=== PATIENT | male | born 1965 | race Caucasian/White ===

== ENCOUNTER 2017-01-14 17:22 | Observation (INO) | payer BC ==
[~2017-01-14] VITALS: Ht 185.4 cm; Wt 87.5 kg
[2017-01-14] MEDS ORDERED: BUPR150T5 PO (17:32)
[2017-01-14] MEDS ORDERED: OMEP40CA2 PO (17:32)
[2017-01-14] MEDS ORDERED: PANTOPRAZOLE 40MG INJ (PROTONIX) (C9113) IV ONE (18:30)
[2017-01-14 18:40] LABS: BASO % 0.2 % (0.0-1.0); EOS # 0.1 K/mm3 (0.0-0.50); EOS % 1.1 % (0.0-3.0); LARGE UNSTAINED CELL # 0.2 K/mm3 (0.0-0.4); LARGE UNSTAINED CELL % 1.5 % (0.0-4.0); LYMPH % 18.5 % (24.0-44.0); MEAN CORPUSCULAR HEMOGLOBIN 34.3 pg (27.0-33.0); MEAN CORPUSCULAR HGB CONC 35.2 g/dl (32.0-36.5); MEAN CORPUSCULAR VOLUME 97.4 fl (80.0-96.0); MONO # 0.5 K/mm3 (0.0-0.8); MONO % 4.8 % (0.0-5.0); NEUTROPHILS # 7.9 K/mm3 (1.8-7.7); NEUTROPHILS % 73.9 % (36.0-66.0); PLATELET COUNT, AUTOMATED 193 k/mm3 (150-450); RED CELL DISTRIBUTION WIDTH 11.4 % (11.5-14.5); WHITE BLOOD COUNT 10.7 K/mm3 (4.0-10.0)
[2017-01-14 18:44] LABS: ALBUMIN 3.9 GM/DL (3.2-5.2); ALBUMIN/GLOBULIN RATIO 1.39 (1.00-1.93); ALKALINE PHOSPHATASE 103 U/L (45-117); ALT/SGPT 35 U/L (12-78); ANION GAP 11 MEQ/L (8-16); AST/SGOT 16 U/L (15-37); BILIRUBIN,DIRECT 0.2 MG/DL (0.0-0.2); BILIRUBIN,TOTAL 0.7 MG/DL (0.2-1.0); BLOOD UREA NITROGEN 12 MG/DL (7-18); CALCIUM LEVEL 8.9 MG/DL (8.5-10.1); CARBON DIOXIDE LEVEL 25 MEQ/L (21-32); CHLORIDE LEVEL 103 MEQ/L (98-107); CREATININE FOR GFR 0.78 MG/DL (0.70-1.30); GLOMERULAR FILTRATION RATE > 60.0 (>60); GLUCOSE, FASTING 99 MG/DL (70-105); POTASSIUM SERUM 3.5 MEQ/L (3.5-5.1); SODIUM LEVEL 139 MEQ/L (136-145); TOTAL PROTEIN 6.7 GM/DL (6.4-8.2)
--- NOTE | 2017-01-14 19:03 | REP ---
REASON: Epigastric pain. COMPARISON: None. FINDINGS: Supine and upright views of the abdomen show the intestinal gas pattern to be nonspecific. Gas and stool is seen throughout the colon within the rectosigmoid region. The organ silhouettes insofar as delineated appear unremarkable. No abdominal calcific densities are seen within the abdomen or pelvis. The accompanying single frontal view of the chest shows no free subdiaphragmatic air, cardiomegaly, infiltrates or effusions. Surgical clips are seen in the right upper quadrant from previous cholecystectomy. IMPRESSION: Nonspecific intestinal gas pattern. Signed by Jamie Ordaz DO 01/14/2017 07:13 P
[2017-01-14] MEDS ORDERED: GI COCKTAIL 50ML BTL(HYOSCYAMINE/MAALOX/LIDOCAINE VISCOUS)(1:3:1) PO ONE (19:15)
[2017-01-14] MEDS ORDERED: ONDANSETRON 4MG/2ML VIAL (J2405) IV ONE ×2 (20:30→22:15)
[2017-01-14] MEDS ORDERED: ISOVUE-370 76% 100ML VIAL (Q9967) As Ordered ONE (20:56)
--- NOTE | 2017-01-14 21:39 | ECGEPIP ---
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
--- NOTE | 2017-01-14 21:40 | ECGEPIP ---
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
--- NOTE | 2017-01-14 22:10 | REPUSA ---
CLINICAL HISTORY: Pancreatitis. TECHNIQUE: CT abdomen and pelvis following administration of IV contrast. Total DLP 572.1 mGy*cm COMPARISON: No pertinent prior studies are available at this time. CT ABDOMEN WITH CONTRAST: Lung bases: No lung base infiltrate or effusion. Left lower lobe atelectasis. Liver: No intrahepatic ductal dilation. Gallbladder: Cholecystectomy. Pancreas: Mild peripancreatic edema consistent with pancreatitis. No pancreatic duct dilation. Bowel loops: Nondistended. Spleen: Normal size. Adrenals: Normal size. Kidneys: No hydronephrosis. Aorta: Normal caliber. Peritoneum: No free air. Lumbar spine: Degenerative spondylotic changes at L5-S1. CT PELVIS WITH CONTRAST: Colon: Nondistended. Appendix: Normal appendix is seen. Bladder: Normally distended. Pelvic organs: Unremarkable. Peritoneum: No fluid. Skeleton: No acute findings. IMPRESSION: Mild acute pancreatitis without evidence of pancreatic obstruction or drainable collectio n.
[2017-01-14] MEDS ORDERED: KETOROLAC 30 MG/ML VIAL (J1885) IV ONE (22:15)
[2017-01-14] MEDS ORDERED: NS 1,000 ML IV ONE (22:15)
[2017-01-14] MEDS: MORPHINE 4 MG/ML 1ML SYRINGE IV PRN ×2 (22:26→23:38)
[2017-01-14] MEDS: NS 1,000 ML IV SCH (23:57)
[2017-01-15] MEDS ORDERED: PERCOCET 5MG/325MG TAB PO PRN ×2
[2017-01-15] MEDS ORDERED: ONDANSETRON 4MG/2ML VIAL (J2405) IV PRN
[2017-01-15] MEDS ORDERED: BUPR150T3 PO (00:13)
[2017-01-15] MEDS ORDERED: LORazepam 2 MG/ML VIAL (J2060) IM PRN (00:30)
[2017-01-15] MEDS ORDERED: OXAZEPAM 10 MG CAP PO PRN (00:30)
[2017-01-15] MEDS ORDERED: MULTIVITAMIN -ADULT INJECTION 10 ML, THIAMINE INJection 100 MG, FOLIC ACID 1 MG in NS 1... IV ONE (01:00)
[2017-01-15 02:03] VITALS: BP 131/65
[2017-01-15] MEDS: MORPHINE 4 MG/ML 1ML SYRINGE IV PRN ×2 (03:35→08:52)
[2017-01-15] MEDS: NS 1,000 ML IV SCH ×5 (05:04→20:50)
[2017-01-15 05:50] LABS: MEAN CORPUSCULAR HEMOGLOBIN 34.8 pg (27.0-33.0); MEAN CORPUSCULAR HGB CONC 35.5 g/dl (32.0-36.5); RED CELL DISTRIBUTION WIDTH 11.7 % (11.5-14.5); WHITE BLOOD COUNT 7.9 K/mm3 (4.0-10.0)
[2017-01-15 06:00] VITALS: BP 110/55
[2017-01-15 06:17] LABS: ALBUMIN/GLOBULIN RATIO 1.11 (1.00-1.93); ALKALINE PHOSPHATASE 124 U/L (45-117); ALT/SGPT 186 U/L (12-78); ANION GAP 7 MEQ/L (8-16); AST/SGOT 270 U/L (15-37); BILIRUBIN,TOTAL 1.7 MG/DL (0.2-1.0); BLOOD UREA NITROGEN 8 MG/DL (7-18); CALCIUM LEVEL 7.9 MG/DL (8.5-10.1); CARBON DIOXIDE LEVEL 25 MEQ/L (21-32); CHLORIDE LEVEL 108 MEQ/L (98-107); CREATININE FOR GFR 0.66 MG/DL (0.70-1.30); GLOMERULAR FILTRATION RATE > 60.0 (>60); GLUCOSE, FASTING 90 MG/DL (70-105); POTASSIUM SERUM 3.7 MEQ/L (3.5-5.1); SODIUM LEVEL 140 MEQ/L (136-145); TOTAL PROTEIN 5.7 GM/DL (6.4-8.2)
--- NOTE | 2017-01-15 08:10 | HPE ---
DATE OF ADMISSION: 01/14/2017 PRIMARY CARE PROVIDER: LENIN Hopkins. CODE STATUS: FULL CODE. CHIEF COMPLAINT: Abdominal pain. HISTORY OF PRESENT ILLNESS: 51-year-old gentleman with worsening midepigastric abdominal pain with nausea and vomiting for the last 48 hours or so. He states that he does drink quite a bit of liquor. He is, however, reluctant to quantify, but he states that he does drink on a regular basis and states that he drinks "a lot." His family is present at bedside. They also confirm that he does have a history of alcohol abuse. However, the patient states that he has never had any issues with delirium tremens (DTs), no withdrawal symptoms or feeling anxious or jittery if he goes a long period of time without drinking any alcohol. He denies any eye openers. Back to his symptoms, he stated about 2 days ago he started developing some nausea, vomiting, midepigastric abdominal pain, which has become progressively worse which he describes as more of a burning sharp sensation. No radiation to his back. His bowel movements have been regular. He has been voiding fine, but he is having difficulty with maintaining good oral intake. PAST MEDICAL HISTORY: Includes: 1. Tobacco use. 2. Alcohol abuse. 3. Anxiety. 4. Gastroesophageal reflux disease (GERD). PAST SURGICAL HISTORY: He is status post gallbladder surgery approximately a year ago, did not have any associated pancreatitis at that time and he states that this is a first-time episode. FAMILY HISTORY: Noncontributory. SOCIAL HISTORY: The patient is , lives at home with his . 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 Smokes sometimes upwards of half a pack to a pack a day. Denies any sick contacts. No recent travel. No pets. ALLERGIES: No known drug allergies. HOME MEDICATIONS: Include: - omeprazole 40 mg daily - bupropion 150 mg daily REVIEW OF SYSTEMS: Constitutionally, he denies fevers, chills, rigors, but he is having decreased appetite, decreased oral intake and nausea, vomiting with abdominal pain. HEENT: No headache. He denies blurry vision, double vision or difficulty with speech or swallow. Pulmonary: Denies productive sputum, cough or hemoptysis. Cardiovascular: No chest pain. No paroxysmal nocturnal dyspnea (PND). No orthopnea. Gastrointestinal: As outlined in history of present illness (HPI), nausea, vomiting, epigastric pain for 48 hours. He denies any diarrhea. Denies any hematochezia or melena. Genitourinary: No dysuria, frequency or hematuria. Musculoskeletal: No bone loss or joint pain, swelling or erythema. Neurologic: No paresthesias or paralysis. No migraines. No loss of consciousness. Lymphatics: No lumps, bumps, swelling neck, axilla or groin. No night sweats and no weight loss. Endocrine: Negative for diabetes. Negative for thyroid disorder. Hematology: Negative for bleeding or bruising disorder. No prior history of venous thromboembolism. Oncology: No history of cancer. Psychiatric: Positive for anxiety. He does use bupropion for both anxiety and to help with smoking cessation. 10-point review of systems complete. Pertinent positives are listed. PHYSICAL EXAMINATION: Temperature is 98.8, pulse 80, respiratory rate is 18, blood pressure 113/80, SPO2 is 97% on room air. General: The patient appears to be in no acute distress. He is alert, oriented, pleasant to talk to. HEENT: Unremarkable. Lungs: Clear to auscultation. Heart: Regular rhythm. Abdomen: Positive epigastric tenderness. Positive bowel sounds. He does have quite a bit of tenderness in the epigastric region, but no rebound signs. Extremities: No edema or calf tenderness. LABORATORY DATA: White count is 10.7, hemoglobin 15.6 and platelets are 193. Sodium 139, potassium 3.5, chloride 103, bicarbonate 25, anion gap 11, BUN is 12, creatinine 0.78, glucose is 99, total bilirubin 0.7, direct bilirubin 0.2, AST 16, ALT 35, alkaline phosphatase 103. Cardiac enzymes unremarkable with CK 124 and 113, CK-MB is 1.0 and 1.0, and troponin remains less than 0.02 on two occasions. Albumin is 3.9, lipase 377. Abdominal x-ray: Nonspecific intestinal gas pattern. CT of the abdomen and pelvis with intravenous (IV) contrast only did demonstrate mild acute pancreatitis with mild peripancreatic edema, but no signs of pancreatic obstruction or drainable collection. 12-lead EKG normal sinus rhythm with no acute ST-T wave abnormality. IMPRESSION: Mr. Jean is a 51-year-old gentleman who unfortunately has clinical signs and symptoms of acute pancreatitis confirmed on CT scan, but is serum negative with normal lipase. At any rate he is unable to tolerate oral intake and will need to be admitted overnight with intravenous (IV) fluids and further supportive therapy. PROBLEM LIST: 1. Acute pancreatitis. 2. Alcohol abuse. 3. Tobacco use. 4. History of anxiety. 5. Gastroesophageal reflux disease (GERD). PLAN: The patient will be admitted to medicine/surgery. Intravenous (IV) fluids, nothing by mouth, will start him on a banana bag. He can be progressed to oral multivitamin, folic acid and thiamine tomorrow. In the meantime, I did explain to him that we will need to make him nothing by mouth. Pain control will be with Percocet as needed and IV morphine for breakthrough pain. Will give him a Nicoderm patch. I did have discussion regarding alcohol cessation, as well as tobacco cessation and education was provided. Deep venous thrombosis (DVT) prophylaxis with Lovenox. DISPOSITION: The patient will likely be here 1-2 days. We will see how he does tomorrow, see how his labs are doing, see if we can progress his diet as tolerated tomorrow morning. Dr. Jaime will take over care for the hospitalists.
[2017-01-15] MEDS: buPROPion **XL** TABLET 150MG (WELLBUTRIN XL) PO SCH (08:49)
[2017-01-15] MEDS: OMEPRAZOLE 20 MG CAP PO SCH (08:50)
[2017-01-15] MEDS: ENOXAPARIN 40 MG/0.4 ML SYRINGE (J1650) SC SCH (08:51)
[2017-01-15] MEDS: NICOTINE 7 MG/24 HR TRANSDERMAL TD SCH (08:57)
[2017-01-15 14:00] VITALS: BP 127/71
--- NOTE | 2017-01-15 15:21 | IPNPDOC ---
Date Seen The patient was seen on 01/15/17. Progress Note Hospitalist Progress Note Subjective: Patient states that he is not experiencing any vomiting, and his abdominal pain has almost entirely resolved. He reports being very hungry and wanting to eat. Objective: Physical Exam: Vitals: Vital Sign - Last 24 Hours 01/14/17 01/14/17 01/14/17 01/14/17 17:23 17:53 18:09 18:22 Temp 97.8 100.1 Pulse 77 74 Resp 18 B/P (MAP) 166/80 (108) Pulse Ox 100 99 O2 Delivery Room Air 01/14/17 01/14/17 01/14/17 01/14/17 18:26 18:41 18:52 18:56 Pulse 70 B/P (MAP) 152/69 (96) 127/69 (88) 125/69 (87) Pulse Ox 99 01/14/17 01/14/17 01/14/17 01/14/17 19:07 19:11 19:26 19:41 Pulse 70 70 70 B/P (MAP) 127/72 (90) 125/71 (89) 126/68 (87) Pulse Ox 99 99 98 01/14/17 01/14/17 01/14/17 01/14/17 19:56 20:11 20:26 20:41 Pulse 72 66 72 64 B/P (MAP) 136/64 (88) 117/57 (77) 114/57 (76) 116/55 (75) Pulse Ox 99 100 98 95 01/14/17 01/14/17 01/14/17 01/14/17 20:56 21:11 21:26 21:41 Pulse 68 76 72 74 B/P (MAP) 104/55 (71) 123/58 (79) 113/57 (75) 102/54 (70) Pulse Ox 98 96 96 97 01/14/17 01/14/17 01/14/17 01/14/17 21:42 21:57 22:11 22:12 Pulse 72 66 B/P (MAP) 108/61 (77) Pulse Ox 99 98 97 01/14/17 01/14/17 01/14/17 01/14/17 22:26 22:26 22:27 22:42 Pulse 72 64 Resp 18 B/P (MAP) 99/54 (69) Pulse Ox 98 95 8/3/17 8/3/17 8/3/17 8/3/17 22:56 22:57 23:12 23:23 Temp 98.8 Pulse 62 66 B/P (MAP) 100/54 (69) Pulse Ox 96 96 01/14/17 01/14/17 01/14/17 01/14/17 23:26 23:27 23:38 23:42 Pulse 80 68 Resp 18 B/P (MAP) 113/80 (91) Pulse Ox 97 97 01/14/17 01/14/17 01/15/17 01/15/17 23:51 23:57 00:11 00:12 Pulse 72 70 Resp 18 B/P (MAP) 123/60 (81) Pulse Ox 95 96 01/15/17 01/15/17 01/15/17 01/15/17 00:27 01:33 02:03 03:35 Temp 97.9 98.1 Pulse 72 68 78 Resp 18 20 20 B/P (MAP) 128/75 (92) 131/65 (87) Pulse Ox 96 99 97 O2 Delivery Room Air Room Air 01/15/17 01/15/17 01/15/17 01/15/17 06:00 08:52 09:02 12:21 Temp 97.8 Pulse 69 Resp 17 17 B/P (MAP) 110/55 (73) Pulse Ox 97 O2 Delivery Room Air Room Air 01/15/17 14:00 Temp 98.6 Pulse 71 Resp 18 B/P (MAP) 127/71 (89) Pulse Ox 98 O2 Delivery Room Air General: Awake, alert, no acute distress HEENT: Normocephalic, atraumatic, extraocular movements intact CV: Regular rate and rhythm Lungs: Clear to auscultation bilaterally Abd: Soft, decreased bowel sounds, mild tenderness to palpation in the epigastrium and right lower quadrant Extremities: No edema Neuro: Alert and oriented 3, normal speech Psych: Normal mood and affect Labs and Imaging: Laboratory Tests 01/14/17 17:51 Red Blood Count 4.55, Mean Corpuscular Volume 97.4 H, Mean Corpuscular Hemoglobin 34.3 H, Mean Corpuscular Hemoglobin Concent 35.2, Red Cell Distribution Width 11.4 L, Neutrophils (%) (Auto) 73.9 H, Lymphocytes (%) (Auto ) 18.5 L, Monocytes (%) (Auto) 4.8, Eosinophils (%) (Auto) 1.1, Basophils (%) ( Auto) 0.2, Neutrophils # (Auto) 7.9 H, Lymphocytes # (Auto) 2.0, Monocytes # ( Auto) 0.5, Eosinophils # (Auto) 0.1, Basophils # (Auto) 0.0 01/15/17 05:27 Red Blood Count 4.05 L, Mean Corpuscular Volume 98.0 H, Mean Corpuscular Hemoglobin 34.8 H, Mean Corpuscular Hemoglobin Concent 35.5, Red Cell Distribution Width 11.7, Calcium Level 7.9 L, Aspartate Amino Transf (AST/SGOT) 270 H, Alanine Aminotransferase (ALT/SGPT) 186 H, Alkaline Phosphatase 124 H, Total Bilirubin 1.7 #H, Total Protein 5.7 L, Albumin 3.0 #L Assessment and Plan: 51-year-old male with tobacco abuse, alcohol abuse, GERD, anxiety who presented with abdominal pain and vomiting and is admitted with a seronegative pancreatitis. 1. Acute pancreatitis: The patient's lipase is unremarkable, but his symptoms and imaging on CT are consistent with acute pancreatitis. Imaging reveals no evidence of obstruction or any drainable collection. The patient's initial LFTs were normal, but this morning they have spiked up. We will continue to trend these. Clinically, the patient is much improved today and is asking to eat. We will allow him a clear liquid diet, but I have advised him, that if this gives him any discomfort or vomiting he needs to stop eating. We will continue IV fluids, as well as pain control. 2. Alcohol abuse: The patient is unwilling to quantify how much he drinks. He has been counseled by both Dr. Grier and myself on alcohol cessation. We'll transition him to oral multivitamin, thiamine, and folate today. He has Serax and Ativan available as needed for signs and symptoms of withdrawal, but at that time, he appears to be stable. 3. Tobacco abuse: The patient is status post cessation counseling. We have made a nicotine patch available to him. 4. GERD: Continue PPI. 5. Anxiety: Continue home Wellbutrin. DVT prophylaxis: Lovenox Dispo: pending improvement in his LFTs, as well as ability to tolerate regular diet VS, I&O, 24H, Lillie Vital Signs/I&O Vital Signs Date Time Temp Pulse Resp B/P (MAP) Pulse Ox O2 Delivery O2 Flow Rate FiO2 01/15/17 14:00 98.6 71 18 127/71 (89) 98 Room Air I&O- Last 24 Hours up to 6 AM 01/15/17 06:00 Intake Total 1000 ml Output Total 450 ml Balance 550 ml Laboratory Data 24H LABS Laboratory Tests 2 01/14/17 17:51: White Blood Count 10.7H, Red Blood Count 4.55, Hemoglobin 15.6, Hematocrit 44.3 , Mean Corpuscular Volume 97.4H, Mean Corpuscular Hemoglobin 34.3H, Mean Corpuscular Hemoglobin Concent 35.2, Red Cell Distribution Width 11.4L, Platelet Count 193, Neutrophils (%) (Auto) 73.9H, Lymphocytes (%) (Auto) 18.5L, Monocytes (%) (Auto) 4.8, Eosinophils (%) (Auto) 1.1, Basophils (%) (Auto) 0.2, Neutrophils # (Auto) 7.9H, Lymphocytes # (Auto) 2.0, Monocytes # (Auto) 0.5, Eosinophils # (Auto) 0.1, Basophils # (Auto) 0.0, Large Unclassified Cells % 1.5 , Large Unclassified Cells # 0.2, Anion Gap 11, Glomerular Filtration Rate > 60.0, Calcium Level 8.9, Aspartate Amino Transf (AST/SGOT) 16, Alanine Aminotransferase (ALT/SGPT) 35, Alkaline Phosphatase 103, Total Bilirubin 0.7, Direct Bilirubin 0.2, Total Creatine Kinase 124, Creatine Kinase MB 1.0, Creatine Kinase MB Relative Index 0.80, Troponin I < 0.02, Total Protein 6.7, Albumin 3.9, Albumin/Globulin Ratio 1.39, Lipase 377 01/14/17 20:08: Total Creatine Kinase 113, Creatine Kinase MB 1.0, Creatine Kinase MB Relative Index 0.88, Troponin I < 0.02 01/15/17 05:27: Anion Gap 7L, Glomerular Filtration Rate > 60.0, Calcium Level 7.9L, Aspartate Amino Transf (AST/SGOT) 270H, Alanine Aminotransferase (ALT/SGPT) 186H, Alkaline Phosphatase 124H, Total Bilirubin 1.7#H, Total Protein 5.7L, Albumin 3.0#L, Albumin/Globulin Ratio 1.11, Lipase 181, Blood Urea Nitrogen 8, Creatinine 0.66L, Sodium Level 140, Potassium Level 3.7, Chloride Level 108H, Carbon Dioxide Level 25 CBC/BMP Laboratory Tests 01/14/17 17:51 Red Blood Count 4.55, Mean Corpuscular Volume 97.4 H, Mean Corpuscular Hemoglobin 34.3 H, Mean Corpuscular Hemoglobin Concent 35.2, Red Cell Distribution Width 11.4 L, Neutrophils (%) (Auto) 73.9 H, Lymphocytes (%) (Auto ) 18.5 L, Monocytes (%) (Auto) 4.8, Eosinophils (%) (Auto) 1.1, Basophils (%) ( Auto) 0.2, Neutrophils # (Auto) 7.9 H, Lymphocytes # (Auto) 2.0, Monocytes # ( Auto) 0.5, Eosinophils # (Auto) 0.1, Basophils # (Auto) 0.0 01/15/17 05:27 Red Blood Count 4.05 L, Mean Corpuscular Volume 98.0 H, Mean Corpuscular Hemoglobin 34.8 H, Mean Corpuscular Hemoglobin Concent 35.5, Red Cell Distribution Width 11.7, Calcium Level 7.9 L, Aspartate Amino Transf (AST/SGOT) 270 H, Alanine Aminotransferase (ALT/SGPT) 186 H, Alkaline Phosphatase 124 H, Total Bilirubin 1.7 #H, Total Protein 5.7 L, Albumin 3.0 #L NATHAN YANG Jan 15, 2017 15:21
[2017-01-15] MEDS: ACETAMINOPHEN TAB 650MG DOSE (2X325MG) PO PRN (20:13)
[2017-01-15 21:00] VITALS: BP 127/71
[2017-01-15 22:00] VITALS: BP 138/58
[2017-01-16] MEDS: NS 1,000 ML IV SCH ×3 (00:59→09:03)
[2017-01-16] MEDS: ACETAMINOPHEN TAB 650MG DOSE (2X325MG) PO PRN (01:01)
[2017-01-16 06:00] VITALS: BP 145/75
[2017-01-16 06:05] LABS: MEAN CORPUSCULAR HEMOGLOBIN 34.9 pg (27.0-33.0); MEAN CORPUSCULAR HGB CONC 35.6 g/dl (32.0-36.5); RED CELL DISTRIBUTION WIDTH 11.2 % (11.5-14.5); WHITE BLOOD COUNT 8.2 K/mm3 (4.0-10.0)
[2017-01-16 06:36] LABS: ALKALINE PHOSPHATASE 114 U/L (45-117); ALT/SGPT 124 U/L (12-78); ANION GAP 5 MEQ/L (8-16); AST/SGOT 52 U/L (15-37); BILIRUBIN,TOTAL 0.7 MG/DL (0.2-1.0); BLOOD UREA NITROGEN 4 MG/DL (7-18); CALCIUM LEVEL 8.4 MG/DL (8.5-10.1); CARBON DIOXIDE LEVEL 27 MEQ/L (21-32); CHLORIDE LEVEL 108 MEQ/L (98-107); CREATININE FOR GFR 0.66 MG/DL (0.70-1.30); GLOMERULAR FILTRATION RATE > 60.0 (>60); GLUCOSE, FASTING 83 MG/DL (70-105); MAGNESIUM LEVEL 2.1 MG/DL (1.8-2.4); POTASSIUM SERUM 4.1 MEQ/L (3.5-5.1); SODIUM LEVEL 140 MEQ/L (136-145)
[2017-01-16] MEDS ORDERED: THIAMINE 100 MG TAB PO SCH (09:00)
[2017-01-16] MEDS ORDERED: MULTIVITAMINS/MINERALS THERAP 1 TAB PO SCH (09:00)
[2017-01-16] MEDS: NICOTINE 7 MG/24 HR TRANSDERMAL TD SCH (09:00)
[2017-01-16] MEDS ORDERED: FOLIC ACID 1 MG TAB PO SCH (09:00)
[2017-01-16] MEDS: ENOXAPARIN 40 MG/0.4 ML SYRINGE (J1650) SC SCH (09:03)
[2017-01-16] MEDS: buPROPion **XL** TABLET 150MG (WELLBUTRIN XL) PO SCH (09:04)
[2017-01-16] MEDS: OMEPRAZOLE 20 MG CAP PO SCH (09:04)
--- NOTE | 2017-01-16 11:28 | DS.PDOC ---
Discharge Summary General Date of Admission Jan 14, 2017 at 17:23 Date of Discharge 01/16/2017 Discharge Summary DISCHARGE SUMMARY DATE OF ADMISSION: 01/14/2017 DATE OF DISCHARGE: 01/16/2017 PRIMARY CARE PHYSICIAN: Maria Elena Chester in [facility] DISCHARGE DIAGNOS(E)S: Acute alcoholic pancreatitis HPI & HOSPITAL COURSE: 51-year-old male with tobacco abuse, alcohol abuse, GERD, anxiety who presented with abdominal pain and vomiting and is admitted with a seronegative pancreatitis. 1. Acute pancreatitis: The patient's lipase is unremarkable, but his symptoms and imaging on CT are consistent with acute pancreatitis. Imaging reveals no evidence of obstruction or any drainable collection. The patient's initial LFTs were normal, but the next morning they spiked up. Today, they are trending down. Clinically, the patient has recovered with no vomiting or pain, and is tolerating a diet. Likely secondary to EtOH abuse. Will need repeat CMP with PCP to ensure LFTs entirely return to normal. 2. Alcohol abuse: The patient is unwilling to quantify how much he drinks. He has been counseled by both Dr. Grier and myself on alcohol cessation. He has not required any benzos while in house nor has he demonstrated withdrawal symptoms. He states he is planning to quit. 3. Tobacco abuse: The patient is status post cessation counseling. We have made a nicotine patch available to him, however, he tells me he prefers to use the wellbutrin for cessation. 4. GERD: Continue PPI. 5. Anxiety: Continue home Wellbutrin. DVT prophylaxis: Lovenox PHYSICAL EXAMINATION ON DISCHARGE: VITAL SIGNS: Vital Signs Date Time Temp Pulse Resp B/P (MAP) Pulse Ox O2 Delivery O2 Flow Rate FiO2 01/16/17 10:11 Room Air 01/16/17 06:00 98.6 72 19 145/75 (98) 96 General: Awake, alert, no acute distress HEENT: Normocephalic, atraumatic, extraocular movements intact CV: Regular rate and rhythm Lungs: Clear to auscultation bilaterally Abd: Soft, decreased bowel sounds, no TTP Extremities: No edema Neuro: Alert and oriented 3, normal speech Psych: Normal mood and affect DISPOSITION: Home DISCHARGE INSTRUCTIONS: Follow-up with PCP within one week; will need LFTs to be rechecked. Do not drink any alcohol. If symptoms return, or if you experience worsening of your symptoms, please call your doctor or return to the emergency department. ITEMS THAT NEED OUTPATIENT FOLLOWUP: PCP will need to recheck LFTs to ensure complete resolution Patient was seen and examined by me on the day of discharge, and I spent a total time of less than 30 minutes on this discharge. Vital Signs/I&Os Vital Signs Date Time Temp Pulse Resp B/P (MAP) Pulse Ox O2 Delivery O2 Flow Rate FiO2 01/16/17 10:11 Room Air 01/16/17 06:00 98.6 72 19 145/75 (98) 96 I&O- Last 24 Hours up to 6 AM 01/16/17 06:00 Intake Total 6301 ml Output Total 1250 ml Balance 5051 ml Laboratory Data Labs 24H Laboratory Tests 2 01/16/17 05:34: Anion Gap 5L, Glomerular Filtration Rate > 60.0, Blood Urea Nitrogen 4L, Creatinine 0.66L, Sodium Level 140, Potassium Level 4.1, Chloride Level 108H, Carbon Dioxide Level 27, Calcium Level 8.4L, Aspartate Amino Transf (AST/SGOT) 52H, Alanine Aminotransferase (ALT/SGPT) 124H, Alkaline Phosphatase 114, Total Bilirubin 0.7#, Total Protein 6.0L, Albumin 3.0L, Magnesium Level 2.1, Albumin/ Globulin Ratio 1.00, Lipase 87 CBC/BMP Laboratory Tests 01/16/17 05:34 Red Blood Count 3.99 L, Mean Corpuscular Volume 98.0 H, Mean Corpuscular Hemoglobin 34.9 H, Mean Corpuscular Hemoglobin Concent 35.6, Red Cell Distribution Width 11.2 L, Calcium Level 8.4 L, Aspartate Amino Transf (AST/SGOT ) 52 H, Alanine Aminotransferase (ALT/SGPT) 124 H, Alkaline Phosphatase 114, Total Bilirubin 0.7 #, Total Protein 6.0 L, Albumin 3.0 L Discharge Medications Scheduled Bupropion Hcl (Bupropion HCl Xl) 150 Mg Tab, 150 MG PO DAILY, (Reported) Omeprazole (Omeprazole) 40 Mg Cap, 40 MG PO DAILY, (Reported) Allergies Coded Allergies: No Known Allergies (Unverified , 01/14/17) NATHAN YANG Jan 16, 2017 11:27
[2017-01-16 14:00] VITALS: BP 138/78
== END 2017-01-16 14:15 | disposition home or self-care (01) ==
LOC: M ED 17:22 → M ED INP 17:23 → M MSPAV 01-15 02:03
PROVIDERS: ADMIT Hospitalist; ATTEND Hospitalist
DX: K85.20 Alcohol induced acute pancreatitis without necrosis or infection (principal); F10.10 Alcohol abuse, uncomplicated; K21.9 Gastro-esophageal reflux disease without esophagitis; F41.9 Anxiety disorder, unspecified; F17.210 Nicotine dependence, cigarettes, uncomplicated; Z79.899 Other long term (current) drug therapy
CPT/HCPCS: 36415; 74022; 74177; 80048; 80053; 80076; 82550; 82553; 83690; 83735; 85025; 85027; 93005; 93041; 96361; 96372; 96374; 96375; 96376; 99285; C9113; J1650; J1885; J2405; J3411; Q9967